=== PATIENT | male | born 1940 | race Caucasian/White ===

== ENCOUNTER 2018-09-07 12:25 | Day surgery (SDC) | payer MEDICARE, OTHER ==
[~2018-09-07] VITALS: Ht 177.8 cm; Wt 81.6 kg
[~2018-09-07 12:25] MED LIST: Ambien10 MG PO; Aspirin EC81 MG PO; HYOS0.375T PO; INSDET100 SC; INSUASPI; LAVAP17G PO; METF500C PO; ONDA4ODT PO; Prilosec Otc20 MG PO; Prinivil10 MG PO; Stool Softener100 MG; TOUJEO SOL300 UNIT/1 SC; TRAZ100 PO; TUMS500 MG PO
== END 2018-09-07 15:14 | disposition home or self-care (01) ==
LOC: ORSCSDS 12:25
PROVIDERS: Internal Medicine Gastroenterology
PROC: 0DB98ZX Excision of Duodenum, Via Natural or Artificial Opening Endoscopic, Diagnostic (ICD-10-PCS; principal; 2018-09-07 13:45)
PROC: 0DBN8ZX Excision of Sigmoid Colon, Via Natural or Artificial Opening Endoscopic, Diagnostic (ICD-10-PCS; principal; 2018-09-07 13:45)
PROC: 0DB68ZX Excision of Stomach, Via Natural or Artificial Opening Endoscopic, Diagnostic (ICD-10-PCS; principal; 2018-09-07 13:45)
PROC: 0DB48ZX Excision of Esophagogastric Junction, Via Natural or Artificial Opening Endoscopic, Diagnostic (ICD-10-PCS; principal; 2018-09-07 13:45)
DX: K21.9 Gastro-esophageal reflux disease without esophagitis (principal); K22.70 Barrett's esophagus without dysplasia; R19.4 Change in bowel habit; K29.70 Gastritis, unspecified, without bleeding; K57.30 Diverticulosis of large intestine without perforation or abscess without bleeding; R11.2 Nausea with vomiting, unspecified; K44.9 Diaphragmatic hernia without obstruction or gangrene; K29.80 Duodenitis without bleeding; R10.9 Unspecified abdominal pain; Z86.010 Personal history of colon polyps; E11.9 Type 2 diabetes mellitus without complications; Z79.899 Other long term (current) drug therapy; Z79.82 Long term (current) use of aspirin
CPT/HCPCS: 82947; 87081; 88305; J2704; J7120

== ENCOUNTER → 2019-02-19 | Outpatient (CLI) | payer MEDICARE, OTHER | END | disposition home or self-care (01) | LOC: PLD 08:27 → LAB SHORT 08:27 | DX: D48.5 Neoplasm of uncertain behavior of skin (principal) | CPT/HCPCS: 88305; 88312 ==

== ENCOUNTER → 2021-01-13 | Outpatient (CLI) | payer MEDICARE, OTHER | LOC: LAB SHORT 08:17 → LAB 08:17 | DX: D49.2 Neoplasm of unspecified behavior of bone, soft tissue, and skin (principal); L89.819 Pressure ulcer of head, unspecified stage; L85.8 Other specified epidermal thickening; Z88.8 Allergy status to other drugs, medicaments and biological substances | CPT/HCPCS: 88305; 88312 ==

== ENCOUNTER 2021-09-10 09:14 | Day surgery (SDC) | payer MEDICARE, OTHER ==
[~2021-09-10] VITALS: Ht 177.8 cm; Wt 76.3 kg
== END 2021-09-10 11:19 | disposition home or self-care (01) ==
LOC: ORSCSDS 09:14
PROVIDERS: Internal Medicine Gastroenterology
PROC: 0DB68ZX Excision of Stomach, Via Natural or Artificial Opening Endoscopic, Diagnostic (ICD-10-PCS; principal; 2021-09-10 10:30)
PROC: 0DB58ZX Excision of Esophagus, Via Natural or Artificial Opening Endoscopic, Diagnostic (ICD-10-PCS; principal; 2021-09-10 10:30)
DX: K22.70 Barrett's esophagus without dysplasia (principal); E11.9 Type 2 diabetes mellitus without complications; K58.9 Irritable bowel syndrome, unspecified; R52 Pain, unspecified; K22.2 Esophageal obstruction; K29.70 Gastritis, unspecified, without bleeding; Z79.4 Long term (current) use of insulin; Z79.899 Other long term (current) drug therapy
CPT/HCPCS: 82947; 88305; 88342; J2704; J7120

== ENCOUNTER → 2021-11-25 | Outpatient (CLI) | payer MEDICARE, OTHER | END | disposition home or self-care (01) | LOC: LAB 13:46 → LAB SHORT 13:46 | DX: N30.01 Acute cystitis with hematuria (principal) | CPT/HCPCS: 87086; 87147 ==

== ENCOUNTER → 2024-01-03 | Outpatient (CLI) | payer MEDICARE, OTHER | LOC: LAB 12:59 → LAB SHORT 12:59 | DX: R30.0 Dysuria (principal) | CPT/HCPCS: 87086 ==

== ENCOUNTER 2024-11-07 06:11 | Day surgery (SDC) | payer MEDICARE, OTHER ==
[~2024-11-07] VITALS: Ht 177.8 cm; Wt 85.3 kg
[~2024-11-07 06:11] MED LIST changes: +Balanced Salt Epinephrine Irrigation Solution 500 mL IR SCH; +Moxifloxacin HCL 0.5 MG/0.1 ML 0.4MLSYR LEFTEYE SCH; +Ondansetron 4 MG SoluTab MM PRN; +PHENYLEPHRINE\\TROPICAMIDE\\TETRACAINE OPHTHALMIC DILATING SOLN LEFTEYE PRN; +Povidone-Iodine 450 DROP/30 ML Solution LEFTEYE SCH; +Povidone-Iodine 450 DROP/30 ML Solution ONE; +Tetracaine HCl/Pf 0.5% Opth Soln 4 ml ONE; +Triamcinolone Inj Susp 40 MG / ML 1ML Vial INJ SCH; +diazePAM 2 MG,diazePAM 5 MG PO SCH
[2024-11-07] MEDS ORDERED: Triamcinolone Inj Susp 40 MG / ML 1ML Vial ONE (06:46)
--- NOTE | 2024-11-07 06:53 | NUR ---
11/07/24 0653 Mely Nunez PT STATES ANXIETY PRIOR TO VALIUM 7MG WAS AT A 5/10. PULSE OXIMETRY IN PLACE SHOWING SPO2 OF 93% TETRACAINE IN AT 0642 PLEDGETT IN AT 0643 CALL LIGHT IN REACH
--- NOTE | 2024-11-07 07:36 | NUR ---
11/07/24 0736 Nona Momin VITALS AT 0736 BP: 163/64 P: 62 O2: 96% WITH 10 LITERS OF BLOW BY OXYGEN
[2024-11-07 07:52] VITALS: BP 139/68
== END 2024-11-07 08:09 | disposition home or self-care (01) ==
LOC: ORSCSDS 06:11
PROVIDERS: Ophthalmology
PROC: 08RK3JZ Replacement of Left Lens with Synthetic Substitute, Percutaneous Approach (ICD-10-PCS; principal; 2024-11-07 07:30)
DX: E11.36 Type 2 diabetes mellitus with diabetic cataract (principal); H25.812 Combined forms of age-related cataract, left eye; I10 Essential (primary) hypertension; E78.00 Pure hypercholesterolemia, unspecified; K21.9 Gastro-esophageal reflux disease without esophagitis; Z79.4 Long term (current) use of insulin; Z79.899 Other long term (current) drug therapy
CPT/HCPCS: A9270; J2003; J3301; V2632

== ENCOUNTER 2024-11-20 06:35 | Day surgery (SDC) | payer MEDICARE, OTHER ==
[~2024-11-20] VITALS: Ht 177.8 cm; Wt 85.0 kg
[~2024-11-20 06:35] MED LIST changes: -Moxifloxacin HCL 0.5 MG/0.1 ML 0.4MLSYR LEFTEYE SCH; +Moxifloxacin HCL 0.5 MG/0.1 ML 0.4MLSYR RIGHTEYE SCH; -PHENYLEPHRINE\\TROPICAMIDE\\TETRACAINE OPHTHALMIC DILATING SOLN LEFTEYE PRN; +PHENYLEPHRINE\\TROPICAMIDE\\TETRACAINE OPHTHALMIC DILATING SOLN RIGHTEYE PRN; -Povidone-Iodine 450 DROP/30 ML Solution LEFTEYE SCH; +Povidone-Iodine 450 DROP/30 ML Solution RIGHTEYE SCH
[2024-11-20] MEDS ORDERED: Triamcinolone Inj Susp 40 MG / ML 1ML Vial ONE (06:45)
--- NOTE | 2024-11-20 07:00 | NUR ---
11/20/24 0700 Leighann Goss PT STATES ANXIETY LEVEL IS 0/10 IN PREOP CALL LIGHT IN HAND PT IS ON CONTINUOUS PULSE OX MONITORING IN PREOP
[2024-11-20] MEDS ORDERED: LISINOPRIL TAB 10M (07:03)
--- NOTE | 2024-11-20 08:01 | NUR ---
11/20/24 0801 STEPHANIA CARRILLO PTS VSS T/O PROCEDURE. 145/73, HR61, O298%
[2024-11-20 08:15] VITALS: BP 138/76
== END 2024-11-20 08:30 | disposition home or self-care (01) ==
LOC: ORSCSDS 06:35
PROVIDERS: Ophthalmology
PROC: 08RJ3JZ Replacement of Right Lens with Synthetic Substitute, Percutaneous Approach (ICD-10-PCS; principal; 2024-11-20 08:00)
DX: E11.36 Type 2 diabetes mellitus with diabetic cataract (principal); H25.811 Combined forms of age-related cataract, right eye; Z96.1 Presence of intraocular lens; I10 Essential (primary) hypertension; E78.00 Pure hypercholesterolemia, unspecified; K21.9 Gastro-esophageal reflux disease without esophagitis; Z79.4 Long term (current) use of insulin; Z79.899 Other long term (current) drug therapy
CPT/HCPCS: A9270; J3301; V2632

== ENCOUNTER 2024-12-03 07:41 | Day surgery (SDC) | payer MEDICARE, OTHER ==
[~2024-12-03] VITALS: Ht 177.8 cm; Wt 84.7 kg
[~2024-12-03 07:41] MED LIST changes: -Balanced Salt Epinephrine Irrigation Solution 500 mL IR SCH; +LISINOPRIL TAB 10M; -Moxifloxacin HCL 0.5 MG/0.1 ML 0.4MLSYR RIGHTEYE SCH; -Ondansetron 4 MG SoluTab MM PRN; -PHENYLEPHRINE\\TROPICAMIDE\\TETRACAINE OPHTHALMIC DILATING SOLN RIGHTEYE PRN; -Povidone-Iodine 450 DROP/30 ML Solution ONE; -Povidone-Iodine 450 DROP/30 ML Solution RIGHTEYE SCH; +SILD50TA PO; +TOLTERODINE TART2 M1 PO; -Tetracaine HCl/Pf 0.5% Opth Soln 4 ml ONE; -Triamcinolone Inj Susp 40 MG / ML 1ML Vial INJ SCH; -diazePAM 2 MG,diazePAM 5 MG PO SCH
[2024-12-03] MEDS ORDERED: PREDNISOLO15 MG/5 ML (07:56)
[2024-12-03] MEDS ORDERED: PRESERVISION A1 EAC6 (07:57)
[2024-12-03 10:08] VITALS: BP 124/83
== END 2024-12-03 09:54 | disposition home or self-care (01) ==
LOC: ORSCSDS 07:41
PROVIDERS: Internal Medicine Gastroenterology
PROC: 0DJ08ZZ Inspection of Upper Intestinal Tract, Via Natural or Artificial Opening Endoscopic (ICD-10-PCS; principal; 2024-12-03 09:00)
DX: K21.9 Gastro-esophageal reflux disease without esophagitis (principal); K44.9 Diaphragmatic hernia without obstruction or gangrene; E11.9 Type 2 diabetes mellitus without complications; I10 Essential (primary) hypertension; E78.00 Pure hypercholesterolemia, unspecified; R10.84 Generalized abdominal pain; Z79.4 Long term (current) use of insulin; Z79.899 Other long term (current) drug therapy
CPT/HCPCS: 82947; J2704; J7120